=== PATIENT | female | born 1995 | race Native Hawaiian/Other Pacific Islander ===

== ENCOUNTER 2017-11-07 14:07 | Emergency (ER) | payer SELFPAY ==
[2017-11-07 14:16] VITALS: BMI 36.0
[2017-11-07] MEDS ORDERED: Piperacill/Tazo 4.5gm in Dex 4.5 GM/100 ML BAG IVPB STA (14:39)
--- NOTE | 2017-11-07 14:40 | C.PDOC ---
History Of Present Illness 22 yo female w/o significant PMHx come in for evaluation of painful swelling gradually developed for past week over coccyx area. Pt admits, (+) chills, intermittent for 2 days. Pt denies previous similar sx in past. Otherwise, pt denies recent illness, lethargy, sore throat, neck pain, cough, SOB, dyspnea, wheezing, abd. pain, V/D, denies change in BM, constipation, UTi sx. Ambulate to Ed for evaluation, appears in pain. Time Seen by Provider: 11/07/17 14:31 Chief Complaint (Nursing): Abnormal Skin Integrity History Per: Patient Past Medical History Reviewed: Historical Data, Nursing Documentation, Vital Signs Vital Signs: Last Vital Signs Temp 98.7 F 11/07/17 16:41 Pulse 78 11/07/17 16:41 Resp 20 11/07/17 16:41 BP 132/74 11/07/17 16:41 Pulse Ox 96 11/07/17 16:41 - Medical History PMH: No Chronic Diseases Surgical History: No Surg Hx Family History: States: No Known Family Hx - Social History Hx Alcohol Use: No Hx Substance Use: No - Immunization History Hx Tetanus Toxoid Vaccination: No Hx Influenza Vaccination: No Hx Pneumococcal Vaccination: No Review Of Systems Except As Marked, All Systems Reviewed And Found Negative. Constitutional: Positive for: Chills. Negative for: Malaise ENT: Negative for: Throat Pain, Throat Swelling Cardiovascular: Negative for: Chest Pain Respiratory: Negative for: Cough, Shortness of Breath, Wheezing Gastrointestinal: Negative for: Nausea, Vomiting, Abdominal Pain, Diarrhea, Constipation Genitourinary: Negative for: Dysuria, Frequency, Incontinence Musculoskeletal: Negative for: Neck Pain, Back Pain Skin: Positive for: Lesions Neurological: Negative for: Weakness, Numbness, Headache, Dizziness Physical Exam - Physical Exam Appears: Well, Non-toxic, No Acute Distress Skin: Normal Color, Warm, Dry, Other ((+) tender mass 2#3cm over coccyx area with erythema extend to B/L gluteal area, (+) flactulance. no proximal streaking.) Eye(s): bilateral: PERRL Nose: No Flaring, No Discharge Oral Mucosa: Moist, No Drooling Throat: No Drooling Neck: Trachea Midline, Supple Cardiovascular: Rhythm Regular Respiratory: No Decreased Breath Sounds, No Accessory Muscle Use, No Stridor, No Wheezing Gastrointestinal/Abdominal: Soft, No Tenderness, No Distention, No Guarding, No Rebound Back: No CVA Tenderness Extremity: Normal ROM, No Deformity, No Swelling Neurological/Psych: Oriented x3, Normal Speech ED Course And Treatment - Laboratory Results Result Diagrams: 11/07/17 15:11 11/07/17 15:11 Lab Interpretation: No Acute Changes Urine POC: Negative O2 Sat by Pulse Oximetry: 98 Pulse Ox Interpretation: Normal Progress Note: On re-evaluation, pt is afebrile, hemodynamicaly stable. non- toxic. Ambulatory in ED with stable giat. PulsEOx 98% RA. Neck: Supple, (-) meningeal sign. Lungs: CTA B/L, BS equal B/L. Abd: benign, (-) guarding, (-) rebound. Back: (-) CVA tenderness. Neurologicaly intact. Skin: (+) exam c/w pilonidal cyst, infected. Blood Cx- pening. UA (+) nitrate, Ucx- pending. Pt advised on course of ds. return to ED in 2 days for re-eavl. return at any time if any worsening or new changes. - Incision & Drainage Of Abscess Anesthesia: Lidocaine 2% Prep Used: Betadine Procedure: Incised W/Scalpel Blade#: (11), Drained Pus, Irrigated Cavity W/ Saline, Probed To Break Up Loculations, Packed W/Gauze Disposition Counseled Patient/Family Regarding: Studies Performed, Diagnosis, Need For Followup, Rx Given - Disposition Referrals: [facility] [Outside] Disposition: HOME/ ROUTINE Disposition Time: 16:22 Condition: STABLE Additional Instructions: Encourage fluids Keep wound clean, dry Take medication as prescribed return to ED in 2 days for wound re-evaluation. return at any time if any worsening or new changes. Prescriptions: Cefdinir [Omnicef] 300 mg PO BID #20 cap Cranberry Fruit Extract [Cranberry] 500 mg PO BID #20 capsule traMADol [Ultram] 50 mg PO TID #7 tab Instructions: Pilonidal Cyst, Urinary Tract Infection, Adult (DC) Forms: [employer] (Djiboutian), School Excuse - Clinical Impression Clinical Impression: Pilonidal cyst with abscess, UTI (urinary tract infection)
[2017-11-07] MEDS ORDERED: Lidocaine 2% Inj (20ml) INFIL STA (14:44)
[2017-11-07] MEDS ORDERED: Morphine 4 MG/ML VIAL ONE ×2 (14:52→15:16)
[2017-11-07 15:19] LABS: BASO # 0.1 K/uL (0.0-0.2); BASO % 0.6 % (0.0-2.0); EOS # 0.1 K/uL (0.0-0.7); EOS % 0.8 % (0.0-4.0); HEMOGLOBIN 12.7 g/dL (11.0-16.0); LYMPH # 3.9 K/uL (1.0-4.3); LYMPH % 40.2 % (20.0-40.0); MEAN CORPUSCULAR HEMOGLOBIN 25.4 pg (27.0-31.0); MEAN PLATELET VOLUME 6.9 fL (7.2-11.7); MONO # 0.7 K/uL (0.0-0.8); MONO % 7.6 % (0.0-10.0); NEUT % 50.8 % (50.0-75.0); RBC 5.01 Mil/uL (3.80-5.20); RED CELL DISTRIBUTION WIDTH 17.8 % (11.5-14.5); WHITE BLOOD COUNT 9.8 K/uL (4.8-10.8)
[2017-11-07] MEDS ORDERED: Lidocaine 2% Inj (20ml) ONE (15:20)
[2017-11-07 15:22] LABS: HCG,QUALITATIVE URINE NEGATIVE (NEGATIVE)
[2017-11-07 15:30] LABS: BLOOD UREA NITROGEN 13 mg/dL (7-17); CALCIUM 8.6 mg/dl (8.6-10.4); GFR AFRICAN-AMERICAN > 60; GFR NON-AFRICAN AMERICAN > 60
[2017-11-07 15:41] LABS: SQUAMOUS EPITHIAL 13 /hpf (0-5); URINE BACTERIA OCC (<OCC); URINE BILIRUBIN NEGATIVE (NEGATIVE); URINE BLOOD NEGATIVE (NEGATIVE); URINE CLARITY Hazy (Clear); URINE COLOR Yellow (YELLOW); URINE GLUCOSE (UA) NORMAL (Normal); URINE LEUKOCYTE ESTERASE NEG Leu/uL (Negative); URINE PROTEIN NEGATIVE (NEGATIVE); URINE UROBILINOGEN NORMAL mg/dL (0.2-1.0)
[2017-11-07 16:43] VITALS: BP 132/74; PULSE 78; RESP 20; TEMP 98.7
[2017-11-09 02:10] VITALS: O2SAT 98
== END 2017-11-07 16:41 | disposition home or self-care (01) ==
LOC: C.ER 14:07
DX: L05.01 Pilonidal cyst with abscess (principal); N39.0 Urinary tract infection, site not specified
CPT/HCPCS: 10080; 80048; 81001; 84703; 85025; 87040; 87086; 87181; 96365; 96375; 99284; J2270; J2405

== ENCOUNTER 2017-11-10 10:26 | Emergency (ER) | payer MEDICAID, OTHER ==
[2017-11-10 10:27] VITALS: BMI 36.0
[2017-11-10 10:52] VITALS: BP 107/70; PULSE 84; RESP 17; TEMP 98.2; O2SAT 100
--- NOTE | 2017-11-10 11:37 | C.PDOC ---
History Of Present Illness 22-year-old female, comes in for scheduled wound check after abscess I&D done on [facility] on 11/07. Patient reports moderate improvement in pain. She admits to mild wound discharge, otherwise, pt denies fever, chills, abdominal pain, BM changes, UTI sx, or any other associated symptoms. Ambulate to Ed for evaluation , not in any apparent distress. Time Seen by Provider: 11/10/17 11:04 Chief Complaint (Nursing): Wound Check History Per: Patient History/Exam Limitations: no limitations Onset/Duration Of Symptoms: Days Ago Current Symptoms Are (Timing): Still Present Past Medical History Reviewed: Historical Data, Nursing Documentation, Vital Signs Vital Signs: Last Vital Signs Temp 98.2 F 11/10/17 10:50 Pulse 84 11/10/17 10:50 Resp 17 11/10/17 10:50 BP 107/70 11/10/17 10:50 Pulse Ox 100 11/10/17 17:19 Family History: States: No Known Family Hx - Social History Hx Alcohol Use: No Hx Substance Use: No - Immunization History Hx Tetanus Toxoid Vaccination: No Hx Influenza Vaccination: No Hx Pneumococcal Vaccination: No Review Of Systems Constitutional: Negative for: Fever, Chills Gastrointestinal: Negative for: Nausea, Vomiting Skin: Negative for: Rash Neurological: Negative for: Weakness, Numbness, Headache, Dizziness Physical Exam - Physical Exam Appears: Non-toxic, No Acute Distress Skin: Warm, Dry, No Rash, Other (small open wound over coccyx with inserted packing. No erythema, no flactulance. No significant wound discharge, no cellulitis.) Gastrointestinal/Abdominal: Soft, No Tenderness, No Distention, No Guarding, No Rebound Back: No Vertebral Tenderness Extremity: Normal ROM, No Tenderness, No Deformity, No Swelling Neurological/Psych: Oriented x3, Normal Speech ED Course And Treatment O2 Sat by Pulse Oximetry: 100 (RA) Pulse Ox Interpretation: Normal Progress Note: On re-eval, pt is afebrile, hemodynamicaly stable. NOn-toxic. SKin: wound cleaned, packing removed and wound irrigated with NS. Wound covered with sterile dressing. No cellulitis, no flactualnce. Pt advised on wound care , cont abx as initiated. Ref. to f/u with PMD in 2- 3 days for re-eval. Disposition Counseled Patient/Family Regarding: Diagnosis, Need For Followup - Disposition Referrals: [facility] [Outside] Miguel Luong MD [Staff Provider] - Disposition: HOME/ ROUTINE Disposition Time: 11:25 Condition: STABLE Additional Instructions: Keep wound clean, dry Continue antibiotic as initiated Follow up with PMD as need for further evaluation and treatment. return to ED if an worsening o new changes. Forms: [employer] (Italian) - Clinical Impression Clinical Impression: Wound check, abscess - Scribe Statement The provider has reviewed the documentation as recorded by the Scribe (Eliecer Wolf) All medical record entries made by the Scribe were at my direction and personally dictated by me. I have reviewed the chart and agree that the record accurately reflects my personal performance of the history, physical exam, medical decision making, and the department course for this patient. I have also personally directed, reviewed, and agree with the discharge instructions and disposition.
== END 2017-11-10 11:49 | disposition home or self-care (01) ==
LOC: C.ER 10:26
DX: Z51.89 Encounter for other specified aftercare (principal); L02.91 Cutaneous abscess, unspecified